=== PATIENT | male | born 1965 | race Caucasian/White ===

== ENCOUNTER → 2018-12-02 | Outpatient (CLI) | payer BC ==
--- NOTE | 2018-12-02 16:14 | Diagnostic Imaging Report ---
EXAMINATION: Multiple views of the lumbar spine. INDICATION: Low back pain with right-sided sciatica. FINDINGS: Alignment of the lumbar spine appears within normal limits. The lumbar vertebral body heights appear maintained. There appear to be some slight wedging on the AP view of the superior endplate of T12. There are degenerative endplate changes most advanced at L4-5 and L5-S1. Most significant disc space height loss also at those levels. There is L5-S1 facet arthropathy. There are degenerative features at both of the SI joints. IMPRESSION: Multilevel degenerative disc disease and facet arthropathy most advanced at L5-S1. Alignment is normal. Lumbar vertebral body heights appear maintained. There is some slight wedging of the superior endplate of T12 of indeterminate age. Compression fracture cannot be excluded. This could be further assessed with MRI or CT. Report was faxed to GWYN Davison at 4:11 p.m., by emily. Dictated by: Dictated on workstation # [id number]
== END ==
LOC: RAD 15:42
PROVIDERS: ATTEND Nurse Practitioner Family
DX: M51.17 Intervertebral disc disorders with radiculopathy, lumbosacral region (principal); M46.87 Other specified inflammatory spondylopathies, lumbosacral region
CPT/HCPCS: 72100